=== PATIENT | male | born 1940 | race Caucasian/White ===

== ENCOUNTER → 2020-07-22 09:08 | Outpatient (BNVA) | payer MEDICARE, SELFPAY | PROVIDERS: PCP Nurse Practitioner Adult Health; Referring Provider Nurse Practitioner Adult Health; Visit Provider Urology | DX: N40.1 Benign prostatic hyperplasia with lower urinary tract symptoms (principal); R35.1 Nocturia; N13.8 Other obstructive and reflux uropathy | CPT/HCPCS: 99212 ==

== ENCOUNTER → 2022-03-30 11:11 | Outpatient (BNVA) | payer MEDICARE, SELFPAY | PROVIDERS: PCP Nurse Practitioner Adult Health; Visit Provider Urology | DX: N40.1 Benign prostatic hyperplasia with lower urinary tract symptoms (principal); N13.8 Other obstructive and reflux uropathy; R35.1 Nocturia | CPT/HCPCS: Q3014 ==

== ENCOUNTER 2023-04-24 13:40 | Outpatient (REF) | payer MEDICARE, SELFPAY ==
[2023-04-24 14:36] LABS: Hematocrit 37.1 % (42.0-52.0); Hemoglobin 12.8 g/dl (14.0-18.0); Mean Corpuscular HGB Conc 34.5 g/dl (31.0-36.0); Mean Corpuscular Hemoglobin 34.3 pg (27.0-33.0); Mean Corpuscular Volume 99.5 fL (80.0-98.0); Mean Platelet Volume 10.9 fL (9.4-12.4); Platelet Count 128 X10*3/uL (160-400); Red Blood Count 3.73 X10*6/uL (4.60-5.80); Red Cell Distribution Width 13.3 % (11.0-16.0); White Blood Count 8.1 X10*3/uL (4.8-10.8)
[2023-04-24 15:49] LABS: Iron 88 mcg/dL (45-160); Percent Iron Saturation 39 % (15-50); Total Iron Binding Capacity 223 mcg/dL (228-428); Unsaturated Iron Binding 135 ug/dL
[2023-04-24 15:54] LABS: Ferritin 531 ng/mL (20-250)
[2023-04-24 15:56] LABS: Prostate Specific Antigen 1.66 ng/mL (<0.05-4.0)
== END 2023-04-24 13:41 | disposition home or self-care (01) ==
LOC: HO.LAB 13:40
PROVIDERS: Urology; PCP Nurse Practitioner Adult Health; Visit Provider Internal Medicine
DX: Z12.5 Encounter for screening for malignant neoplasm of prostate (principal); N13.8 Other obstructive and reflux uropathy; N40.1 Benign prostatic hyperplasia with lower urinary tract symptoms; K59.00 Constipation, unspecified; K62.5 Hemorrhage of anus and rectum
CPT/HCPCS: 36415; 82728; 83540; 84153; 85027; 99202

== ENCOUNTER 2023-04-24 13:40 | Outpatient (AMB) | payer MEDICARE, SELFPAY ==
--- NOTE | 2023-04-24 13:45 | MHC.OFFVIS ---
Intake Vital Signs 04/24/23 13:46 Height 5 ft 5 in Weight 202 lb 13.204 oz BMI 33.7 BP 117/58 L Blood Pressure Location Lt brachial Position Sitting Pulse 75 Intake Visit Reasons: URGENT-change in bowel habits Intake Note: Gareth presents in the office as a new patient. CC: He was having constipation way back but since has resolved. Under Water Assistant Required: No Allergies No Known Allergies Allergy (Verified 04/24/23 13:47) HPI HPI Comments History of Present Illness Details 82 y.o M with PMH of HTN, ??COPD, sleep apnea, who is here for constipation that has now resolved. Reports having severe constipation x1 week for which he was seen by his PCP. Had hard stools that required significant straining and saw streak of blood on wiping after one of the BMs. However reports complete resolution after taking miralax one time and adding fiber and hydration to his diet. No abdominal pain, nausea, vomiting, change in appetite, unintentional weight loss. No blood in stool. No fam hx of CRC. His last colonoscopy was almost 15 years ago according to his reports. [facility] Medical History (Updated 04/26/23 @ 08:57 by Deya Mayo MD) Diverticulitis HTN (hypertension) Elevated PSA Poor urinary stream Benign prostatic hyperplasia with lower urinary tract symptoms Surgical History (Updated 04/24/23 @ 13:47 by NAIMA Jon) Hx of colonoscopy History of appendectomy Review of Systems Const All systems reviewed & are unremarkable except as noted in HPI and below Physical Exam Vital Signs: Last Vital Signs Pulse 75 04/24/23 13:46 BP 117/58 L 04/24/23 13:46 BMI result Body Mass Index 33.7 Gen appear: NAD HEENT: nonicteric, no cervical lymphadenopathy Chest: CTA CVS: Regular S1/S2 Abd: soft, nontender, nondistended, bowel sounds + Ext: no peripheral edema Neuro: A/Ox3, noted to move all extremities spontaneously Psych: interacting appropriately Assessment & Plan Assessment & Plan (1) Constipation: Code(s): K59.00 - Constipation, unspecified (2) Bright red rectal bleeding: Code(s): K62.5 - Hemorrhage of anus and rectum Plan Pt reports complete resolution of sx and is wondering if he really needs to have a colonoscopy. Reviewed with the pt that as long as the sx were self limited and he is back to baseline, there are no red flags to warrant urgent colonoscopy. However, if the sx recur/worsen would strongly advise evaluation with a colonoscopy. He is also adamant that streaks of blood were very scant and have not recured since. However I did advise pt to get blood work done and low threshold to pursue endoscopy if has anemia/low iron indices. Follow up contingent on above. Orders: Orders Ferritin 04/24/23 K62.5 - Hemorrhage of anus and rectum IRON PROFILE 04/24/23 K62.5 - Hemorrhage of anus and rectum Complete Blood Count no Diff 04/24/23 K62.5 - Hemorrhage of anus and rectum Coding Level of Care Code New Pt Level 4 (04999) Diagnoses Constipation K59.00 Bright red rectal bleeding K62.5
[2023-04-24 13:46] VITALS: BP 117/58; PULSE 75; BMI 33.7
== END 2023-04-24 14:43 | disposition home or self-care (01) ==
PROVIDERS: PCP Nurse Practitioner Adult Health; Visit Provider Internal Medicine
DX: K59.00 Constipation, unspecified (principal); K62.5 Hemorrhage of anus and rectum
CPT/HCPCS: 99204

== ENCOUNTER 2023-06-06 11:14 | Outpatient (AMB) | payer MEDICARE, SELFPAY ==
--- NOTE | 2023-06-06 11:39 | A.OFFVIS_ITS ---
Intake Intake Visit Reasons: 1Y PSA(set) Intake Note: Patient is present via phone for 1 year follow-up psa Current medication finasteride, doxasosin, tadalafil PSA RESULTS: 1.66 ng/mL 04/24/2023 Certified Wellness Program Manager Required: No Accompanied by: Self / Same As Patient Allergies No Known Allergies Allergy (Verified 06/06/23 11:40) Medication List - Last Reconciled 06/06/23 by Juan Craven MD albuterol sulfate 90 mcg/actuation 0 mcg inhalation ascorbate calcium (vitamin C) 1 g PO Q6H aspirin (Adult Aspirin Regimen) 81 mg PO DAILY atorvastatin 40 mg PO DAILY calcium carbonate (Calcium) 1,200 mg PO DAILY cholecalciferol (vitamin D3) 125 mcg PO DAILY doxazosin 8 mg PO BEDTIME 90 days finasteride 5 mg PO DAILY 90 days furosemide 20 mg PO DAILY lactobacillus combination no.9 (Adult 50 Plus Probiotic) 4,000 mmu cells PO DAILY losartan 50 mg PO DAILY magnesium 500 mg PO DAILY mecobalamin (vitamin B12) 1,000 mcg PO DAILY multivitamin 1 tab PO DAILY mupirocin 2% topical tadalafil 20 mg PO DAILY PRN 30 days HPI HPI Comments History of Present Illness Details Gareth is a pleasant male. He is a patient of . He is seen for the following urologic conditions - lower urinary tract symptoms - elevated PSA Telemedicine evaluation 15 minute consultation [employer] janette Video attempted Yearly evaluation Effective urinary control on maximum dose doxazosin Finasteride - Sunday, Sunday, Sunday PSA has continued to fall He is still very happy with current resolved Continue yearly review Lower Urinary Tract Symptoms: PSA has dropped. Current visit is for further evaluation of, lower urinary tract symptoms, predominate obstructive symptoms - happy on medications. Current treatment includes 01/04 medication, , alpha fouzia, doxazosin 8mg, 5-AR, finasteride. - Jun 2020 finasteride every other day, doxazosin 8 mg Prior treatments include medication. Prostate Symptom Score Moderate (9-19), Bother 3 01/04 , Mild (0-8), Bother 2. Symptoms include incomplete emptying, and are stable. Prior Prostate Score moderate. PSA 2011 6.5, Free PSA 26% - 01/04 3.3, 07/07 4.0, 07/08 2.3, 07/09 1.8, 02/08 2.8, 05/12 1.6 Prostate volume 30-50gm. Testing at next visit will include Prostate Symptom Score, bladder scan. Treatment plan continue with current medications [facility] Medical History Diverticulitis HTN (hypertension) Elevated PSA Poor urinary stream Benign prostatic hyperplasia with lower urinary tract symptoms Surgical History Hx of colonoscopy History of appendectomy Review of Systems Const All systems reviewed & are unremarkable except as noted in HPI and below Reports no additional complaints Resp Reports no additional complaints GI Reports no additional complaints Reports as per HPI Musc Reports no additional complaints Physical Exam Telemedicine evaluation Appropriate responses Regular breathing rate and rhythm HEENT Head: Yes normal to inspection Ears: hearing grossly normal bilaterally Eyes General: appearance normal, both eyes and all related structures Neck Neck: Yes normal visual inspection Chest Chest palpation & inspection: normal inspection of the chest Resp Effort & Inspection: normal respiratory effort and able to speak in complete sentences Assessment & Plan Assessment & Plan (1) Nocturia associated with benign prostatic hyperplasia: Code(s): N40.1 - Benign prostatic hyperplasia with lower urinary tract symptoms; R35.1 - Nocturia (2) BPH w urinary obs/LUTS: Code(s): N40.1 - Benign prostatic hyperplasia with lower urinary tract symptoms; N13.8 - Other obstructive and reflux uropathy Plan Twelve month follow-up Orders: Orders Prostate Specific Antigen 364 Days N13.8 - Other obstructive and reflux uropathy, N40.1 - Benign prostatic hyperplasia with lower urinary tract symptoms Medications: Changed From finasteride 8 mg PO DAILY To finasteride 5 mg PO DAILY 90 tabs 3RF 90 days From doxazosin 8 mg PO DAILY 90 tabs 3RF 90 days To doxazosin 8 mg PO BEDTIME 90 tabs 3RF 90 days Patient Instructions: Imaging studies, laboratory and physical exam results were discussed and reviewed in detail. No major barriers to patient understanding were identified. An opportunity to ask questions regarding the treatment plan was provided. All questions were answered. The patient expressed understanding and agreement with the above treatment plan. The patient is aware they should contact our office by phone for worsening of their current condition or the appearance of new urologic symptoms. Compliance is encouraged with any medications and followup testing that is ordered. It is a privilege to participate in the urologic care of your patient. If you have any questions or concerns regarding treatment for the above conditions, or other urologic issues, please do not hesitate to contact me. The office telephone contact is [phone]. This note is constructed using voice recognition software. While every effort has been made to ensure accuracy computer forensics technician errors may have been included. Yours sincerely, Dr Juan Craven MD, [facility] - Urology Providers of Expert, Compassionate Care for the Genitourinary System Telehealth Telehealth Location of provider rendering services: practice address Location of patient: address on file Patient Identification confirmed using: Name, : Yes Telehealth method: video Patient verbally consented to treatment: Yes Patient verbally consented to billing insurance company: Yes Patient informed of any privacy concerns related to visit: Yes Coding Level of Care Code Tele Est Pt Level 4 (30775) Diagnoses Nocturia associated with benign prostatic hyperplasia N40.1; R35.1 BPH w urinary obs/LUTS N40.1; N13.8
== END 2023-06-06 13:57 | disposition home or self-care (01) ==
LOC: HO.HUSH 11:14
PROVIDERS: PCP Nurse Practitioner Adult Health; Visit Provider Urology
DX: N40.1 Benign prostatic hyperplasia with lower urinary tract symptoms (principal); R35.1 Nocturia; N13.8 Other obstructive and reflux uropathy
CPT/HCPCS: 99214

== ENCOUNTER → 2023-06-06 11:14 | Outpatient (BNVA) | payer MEDICARE, SELFPAY | PROVIDERS: PCP Nurse Practitioner Adult Health; Visit Provider Urology ==

== ENCOUNTER 2024-04-24 09:31 | Outpatient (AMB) | payer MEDICARE, SELFPAY ==
[2024-04-24 09:39] VITALS: BP 132/77; PULSE 55; O2SAT 94; BMI 34.7
--- NOTE | 2024-04-24 09:39 | MHC.OFFVIS ---
Vital Signs 04/24/24 09:39 Height 5 ft 5 in Weight 208 lb 5.389 oz BMI 34.7 BP 132/77 Blood Pressure Location Rt brachial Position Sitting Pulse 55 Pulse Source Doppler Pulse Oximetry (%) 94 Oxygen Delivery Method Room Air Intake Visit Reasons: copd Allergies No Known Allergies Allergy (Verified 06/06/23 11:40) HPI HPI copd: Details: 83-year-old gentleman, remote former smoker, quit 1981, with underlying pulmonary emphysema without fixed obstruction on pulmonary function test in 2021, possible asthma, MESFIN on CPAP, previously seen at [facility] presents to transition his care secondary to insurance reasons. Patient states that his symptoms been well controlled on Wixela 250 and albuterol MDI. He is using his CPAP machine nightly with good control of his underlying sleep apnea. He denies dyspnea on exertion. He denies any recent exacerbation. [facility], [facility] Medical History Diverticulitis HTN (hypertension) Elevated PSA Poor urinary stream Benign prostatic hyperplasia with lower urinary tract symptoms Surgical History Hx of colonoscopy History of appendectomy Social History (Updated 04/24/24 @ 09:46 by Kathrine Irby Saadia) Patient Tobacco Use Status: Former Tobacco user Tobacco use type: Cigarette Years Smoked: started at age 18, quit at age 41, 2 PPD Review of Systems Const Denies daytime sleepiness, Denies excessive sweating, Denies fatigue, Denies fever(s), Denies lethargy, Denies malaise, Denies night sweats, Denies snoring and Denies weight loss Eyes Denies blurry vision and Denies itchy eyes ENT Denies nasal congestion, Denies post nasal drip, Denies sinus pain, Denies sinus pressure and Denies other ( Thrush) Card Denies chest pain, Denies pedal edema, Denies dyspnea, Denies orthopnea and Denies paroxysmal nocturnal dyspnea Resp Denies cough, Denies hemoptysis, Denies excessive phlegm production, Denies dyspnea, Denies snoring and Denies wheezing GI Denies abdominal pain and Denies heartburn Musc Denies myalgias, Denies arthralgias and Denies joint swelling Skin/Breast Denies rash Neuro Denies memory loss and Denies seizure-like activity Psych Denies abnormal sleep pattern, Denies anxiety and Denies memory loss Endo Denies excessive sweating, Denies fatigue and Denies heat intolerance Jerome/Lymph Denies easy bruising Aller/Immun Denies itchy eyes, Denies seasonal rhinorrhea and Denies wheezing Physical Exam Vital Signs: Last Vital Signs Pulse 55 04/24/24 09:39 BP 132/77 04/24/24 09:39 Pulse Ox 94 04/24/24 09:39 Oxygen Delivery Method Room Air 04/24/24 09:39 BMI result Body Mass Index 34.7 Const General: no acute distress and alert Nutritional Appearance: obese Orientation/consciousness: Other orientation findings ( oriented) HEENT Head: Yes atraumatic Eyes General: appearance normal, both eyes and all related structures Sclerae: sclerae normal EOM: EOMs intact bilaterally Neck Neck: Yes supple Lymphatic: no lymphadenopathy noted Resp Effort & Inspection: normal respiratory effort and no use of accessory muscles Auscultation: clear to auscultation bilaterally Cardio Rate: regular rate Rhythm: regular rhythm Heart sounds: no gallops, no murmurs and no rubs Skin General skin exam: other ( warm) Extrem General: No clubbing, No cyanosis and No edema Assessment & Plan Assessment & Plan (1) Pulmonary emphysema: Code(s): J43.9 - Emphysema, unspecified Category: Medical Plan: No fixed obstruction on PFT, possible underlying asthma. Symptomatic clear well controlled on current regimen of Advair 250 and albuterol MDI. Continue current regimen. (2) MESFIN on CPAP: Code(s): G47.33 - Obstructive sleep apnea (adult) (pediatric) Category: Medical Plan: Therapy report reviewed, patient benefits and is compliant with underlying CPAP therapy. Continue current CPAP therapy. Coding Level of Care Code New Pt Level 4 (31974) Diagnoses Pulmonary emphysema J43.9 MESFIN on CPAP G47.33
== END 2024-04-24 09:57 | disposition home or self-care (01) ==
PROVIDERS: PCP Nurse Practitioner Adult Health; Visit Provider Internal Medicine Pulmonary Disease
DX: J43.9 Emphysema, unspecified (principal); G47.33 Obstructive sleep apnea (adult) (pediatric)
CPT/HCPCS: 99204

== ENCOUNTER → 2024-04-24 09:31 | Outpatient (BNVA) | payer MEDICARE, SELFPAY | PROVIDERS: PCP Nurse Practitioner Adult Health; Visit Provider Internal Medicine Pulmonary Disease | DX: J43.9 Emphysema, unspecified (principal); G47.33 Obstructive sleep apnea (adult) (pediatric); Z99.89 Dependence on other enabling machines and devices | CPT/HCPCS: 99202 ==

== ENCOUNTER → 2024-07-03 09:42 | Outpatient (BNVA) | payer MEDICARE, SELFPAY | PROVIDERS: PCP Nurse Practitioner Adult Health; Visit Provider Urology ==

== ENCOUNTER 2024-07-04 11:16 | Outpatient (AMB) | payer MEDICARE, SELFPAY ==
--- NOTE | 2024-07-04 11:16 | MHC.OFFVIS ---
Intake Visit Reasons: 3M PSA/Testo(Labs?)Confirmed Intake Note: Patient is present for PSA Follow up Urology Med: Finasteride, Doxazosin, Tadalafil Antibiotic Allergy: None Blood Thinner: Aspirin PSA: 06/26/24 1.37 Websphere Commerce Architect Required: No Allergies No Known Allergies Allergy (Verified 07/04/24 11:17) HPI Comments Details: Gareth is a pleasant male. He is a patient of . He is seen for the following urologic conditions - lower urinary tract symptoms - elevated PSA Telemedicine evaluation 15 minute consultation [place] janette Video attempted Yearly evaluation Effective urinary control on maximum dose doxazosin and finasteride Finasteride - daily Plan yearly review Lower Urinary Tract Symptoms: PSA has dropped. Current visit is for further evaluation of, lower urinary tract symptoms, predominate obstructive symptoms - happy on medications. Current treatment includes 01/04 medication, , alpha fouzia, doxazosin 8mg, 5-AR, finasteride. - Jun 2020 finasteride every other day, doxazosin 8 mg Prior treatments include medication. Prostate Symptom Score Moderate (9-19), Bother 3 01/04 , Mild (0-8), Bother 2. Symptoms include incomplete emptying, and are stable. Prior Prostate Score moderate. PSA 2011 6.5, Free PSA 26% - 01/04 3.3, 07/07 4.0, 07/08 2.3, 07/09 1.8, 02/08 2.8, 05/12 1.6, 06/12 1.3 Prostate volume 30-50gm. Testing at next visit will include Prostate Symptom Score, bladder scan. Treatment plan continue with current medications [facility] Medical History Diverticulitis HTN (hypertension) Elevated PSA Poor urinary stream Benign prostatic hyperplasia with lower urinary tract symptoms Surgical History Hx of colonoscopy History of appendectomy Social History Patient Tobacco Use Status: Former Tobacco user Tobacco use type: Cigarette Years Smoked: started at age 18, quit at age 41, 2 PPD Review of Systems Const All systems reviewed & are unremarkable except as noted in HPI and below Reports no additional complaints Resp Reports no additional complaints GI Reports no additional complaints Reports as per HPI Musc Reports no additional complaints Physical Exam Telemedicine evaluation Appropriate responses Regular breathing rate and rhythm HEENT Head: Yes normal to inspection Ears: hearing grossly normal bilaterally Eyes General: appearance normal, both eyes and all related structures Neck Neck: Yes normal visual inspection Chest Chest palpation & inspection: normal inspection of the chest Resp Effort & Inspection: normal respiratory effort and able to speak in complete sentences Telehealth Telehealth Telehealth Platform: [employer] Location of provider rendering services: practice address Location of patient: address on file Patient Identification confirmed using: Name, : Yes Telehealth method: video Patient verbally consented to treatment: Yes Patient verbally consented to billing insurance company: Yes Patient informed of any privacy concerns related to visit: Yes Minutes spent on Phone/Video with Pt.: 15 Assessment & Plan Assessment & Plan (1) BPH w urinary obs/LUTS: Code(s): N40.1 - Benign prostatic hyperplasia with lower urinary tract symptoms; N13.8 - Other obstructive and reflux uropathy Category: Medical (2) Nocturia associated with benign prostatic hyperplasia: Code(s): N40.1 - Benign prostatic hyperplasia with lower urinary tract symptoms; R35.1 - Nocturia Category: Medical Plan Refills for 1 year provided Twelve month follow-up Medications: Refilled doxazosin 8 mg PO BEDTIME 90 days 90 tabs 3RF finasteride 5 mg PO DAILY 90 days 90 tabs 3RF Discontinued tadalafil administer approximately 30min before sexual activity; do not use more than 1 dose per 24hrs Discontinued Reason: Patient Completed Course 20 mg PO DAILY 30 days PRN 6 tabs 2RF sexual activity Patient Instructions: Imaging studies, laboratory and physical exam results were discussed and reviewed in detail. No major barriers to patient understanding were identified. An opportunity to ask questions regarding the treatment plan was provided. All questions were answered. The patient expressed understanding and agreement with the above treatment plan. The patient is aware they should contact our office by phone for worsening of their current condition or the appearance of new urologic symptoms. Compliance is encouraged with any medications and followup testing that is ordered. It is a privilege to participate in the urologic care of your patient. If you have any questions or concerns regarding treatment for the above conditions, or other urologic issues, please do not hesitate to contact me. The office telephone contact is [phone]. This note is constructed using voice recognition software. While every effort has been made to ensure accuracy stamping mill tender errors may have been included. Yours sincerely, Dr Juan Craven MD, [facility] - Urology Providers of Expert, Compassionate Care for the Genitourinary System Coding Level of Care Code Tele Est Pt Level 4 (47041) Diagnoses BPH w urinary obs/LUTS N40.1; N13.8 Nocturia associated with benign prostatic hyperplasia N40.1; R35.1
== END 2024-07-04 11:54 | disposition home or self-care (01) ==
LOC: HO.HUSH 11:16
PROVIDERS: PCP Nurse Practitioner Adult Health; Visit Provider Urology
DX: N40.1 Benign prostatic hyperplasia with lower urinary tract symptoms (principal); N13.8 Other obstructive and reflux uropathy; R35.1 Nocturia
CPT/HCPCS: 99214

== ENCOUNTER 2024-10-24 09:03 | Outpatient (AMB) | payer MEDICARE, SELFPAY ==
--- NOTE | 2024-10-24 09:06 | MHC.OFFVIS ---
Vital Signs 10/24/24 09:21 Height 5 ft 5 in Weight 210 lb 8.663 oz BMI 35.0 BP 120/64 Blood Pressure Location Lt brachial Position Sitting Pulse 50 Pulse Source Pulse Oximeter Pulse Oximetry (%) 98 Oxygen Delivery Method Room Air Intake Visit Reasons: COPD Woodyard Operator Required: No Allergies No Known Allergies Allergy (Verified 10/24/24 09:23) HPI HPI COPD: Details: 84-year-old gentleman, remote former smoker, quit 1981, with underlying pulmonary emphysema without fixed obstruction now followed for asthma and MESFIN on CPAP. Patient's symptoms continue to be well controlled on current regimen of Advair and albuterol MDI. His sleep apnea symptoms are controlled on his current CPAP therapy. He denies recent exacerbations. [facility] Medical History Diverticulitis HTN (hypertension) Elevated PSA Poor urinary stream Benign prostatic hyperplasia with lower urinary tract symptoms Surgical History Hx of colonoscopy History of appendectomy Social History Patient Tobacco Use Status: Former Tobacco user Tobacco use type: Cigarette Years Smoked: started at age 18, quit at age 41, 2 PPD Review of Systems Const Denies daytime sleepiness, Denies excessive sweating, Denies fatigue, Denies fever(s), Denies lethargy, Denies malaise, Denies night sweats, Denies snoring and Denies weight loss Eyes Denies blurry vision and Denies itchy eyes ENT Denies nasal congestion, Denies post nasal drip, Denies sinus pain, Denies sinus pressure and Denies other ( Thrush) Card Denies chest pain, Denies pedal edema, Denies dyspnea, Denies orthopnea and Denies paroxysmal nocturnal dyspnea Resp Denies cough, Denies hemoptysis, Denies excessive phlegm production, Denies dyspnea, Denies snoring and Denies wheezing GI Denies abdominal pain and Denies heartburn Musc Denies myalgias, Denies arthralgias and Denies joint swelling Skin/Breast Denies rash Neuro Denies memory loss and Denies seizure-like activity Psych Denies abnormal sleep pattern, Denies anxiety and Denies memory loss Endo Denies excessive sweating, Denies fatigue and Denies heat intolerance Jerome/Lymph Denies easy bruising Aller/Immun Denies itchy eyes, Denies seasonal rhinorrhea and Denies wheezing Physical Exam Vital Signs: Last Vital Signs Pulse 50 10/24/24 09:21 BP 120/64 10/24/24 09:21 Pulse Ox 98 10/24/24 09:21 Oxygen Delivery Method Room Air 10/24/24 09:21 BMI result Body Mass Index 35.0 Const General: no acute distress and alert Nutritional Appearance: not obese Orientation/consciousness: Other orientation findings ( oriented) HEENT Head: Yes atraumatic Eyes General: appearance normal, both eyes and all related structures Sclerae: sclerae normal EOM: EOMs intact bilaterally Neck Neck: Yes supple Lymphatic: no lymphadenopathy noted Resp Effort & Inspection: normal respiratory effort and no use of accessory muscles Auscultation: clear to auscultation bilaterally Cardio Rate: regular rate Rhythm: regular rhythm Heart sounds: no gallops, no murmurs and no rubs Skin General skin exam: other ( warm) Extrem General: No clubbing, No cyanosis and No edema Assessment & Plan Assessment & Plan (1) Pulmonary emphysema: Code(s): J43.9 - Emphysema, unspecified Category: Medical Plan: Well controlled on current regimen of Advair and albuterol MDI. Continue current regimen. (2) MESFIN on CPAP: Code(s): G47.33 - Obstructive sleep apnea (adult) (pediatric) Category: Medical Plan: Well controlled on current CPAP therapy. Continue CPAP therapy. Therapy and compliance report reviewed - patient is benefitting from and is compliant with noninvasive positive pressure ventilation treatment, using it greater than 70% of the time, more than 4 hours per night. Medications: Changed From albuterol sulfate 90 mcg/actuation inhalation To albuterol sulfate 90 mcg/actuation 2 puffs inhalation Q4-6H PRN 1 ea 6RF shortness of breath or wheezing Coding Level of Care Code Est Pt Level 4 (38326) Diagnoses Pulmonary emphysema J43.9 MESFIN on CPAP G47.33
[2024-10-24 09:21] VITALS: BP 120/64; PULSE 50; O2SAT 98; BMI 35.0
== END 2024-10-24 11:10 | disposition home or self-care (01) ==
PROVIDERS: PCP Nurse Practitioner Adult Health; Visit Provider Internal Medicine Pulmonary Disease
DX: J43.9 Emphysema, unspecified (principal); G47.33 Obstructive sleep apnea (adult) (pediatric)
CPT/HCPCS: 99214

== ENCOUNTER → 2024-10-24 09:03 | Outpatient (BNVA) | payer MEDICARE, SELFPAY | PROVIDERS: PCP Nurse Practitioner Adult Health; Visit Provider Internal Medicine Pulmonary Disease | DX: J43.9 Emphysema, unspecified (principal); G47.33 Obstructive sleep apnea (adult) (pediatric); Z99.89 Dependence on other enabling machines and devices | CPT/HCPCS: 99212 ==

== ENCOUNTER 2025-07-03 08:49 | Outpatient (AMB) | payer MEDICARE, SELFPAY ==
--- OUTSIDE RECORDS SUMMARY | 2025-07-02 10:25 | XMS_ITS | Encounter Summary ---
Author Organization [facility] Address [address] [place] [address] Care Team Providers Care Rn Travel Name Role Phone Quang Morris DO Primary Care Provider [phone] Encounter Details Date Type Department Care Team (Late Contact Info) Description 07/02/2025 10:25 AM EST Lab Draw Station - [address] [phone] Essential (primary) hypertension Social History Tobacco Use Types Packs/Day Years Used Date Smoking Tobacco: Former Cigarettes 2.5 23 0 08/20/1957 - 08/20/1980 Smokeless Tobacco: Never Alcohol Use Standard Drinks/Week Comments Never 0 (1 standard drink = 0.6 oz pur e alcohol) Sex and Gender Information Value Date Recorded Sex Assigned at Not on file Legal Sex Male 6:09 AM EST Gender Identity Not on file Sexual Orientation Not on file documented as of this encounter Plan of Treatment Upcoming Encounters Date Type Department Care Team (Late Contact Info) Description 07/28/2025 3:35 PM EST Office Visit Pulmonology - [place] [address] [place] [phone] Janet Gee NP [address] [place] [phone] documented as of this encounter Procedures Procedure Name Priority Date/Time Associated Diagnosis Comments LIPID PANEL WITH REFLEX TO DIRECT LDL Routine 07/02/2025 10:25 AM EST Essential (primary) hypertension BASIC METABOLIC PANEL Routine 07/02/2025 10:25 AM EST Essential (primary) hypertension documented in this encounter Results * Lipid panel with reflex to direct LDL (07/02/2025 10:25 AM EST) Cholesterol 133 0 - 200 mg/dL LAB CHEMISTRY METHOD 07/02/2025 12:07 PM [facility] Triglycerides 89 0 - 150 mg/dL LAB CHEMISTRY METHOD 07/02/2025 12:07 PM [facility] HDL 68 >=40 mg/dL LAB CHEMISTRY METHOD 07/02/2025 12:07 PM [facility] LDL Calculated 47 0 - 100 mg/dL LAB CHEMISTRY METHOD 07/02/2025 12:07 PM [facility] Comment:Estimated LDL Calcul ated using equation: Total cholesterol - HDL cholesterol - (Triglycerides/5) VLDL Cholesterol Emmanuel 17.8 mg/dL LAB CHEMISTRY METHOD 07/02/2025 12:07 PM [facility] Non HDL Chol. (LDL+VLDL) 65 <145 mg/dL LAB CHEMISTRY METHOD 07/02/2025 12:07 PM [facility] Chol/HDL Ratio 2.0 0.0 - 4.4 LAB CHEMISTRY METHOD 07/02/2025 12:07 PM [facility] Blood Venipuncture / Unknown 07/02/2025 10:25 AM EST 07/02/2025 10:[address] [facility] LAB BLOOD ORDERABLES Final Resul t [facility] [address] [place] [address], * (ABNORMAL) Basic metabolic panel (07/02/2025 10:25 AM EST) Pathologist [facility] Sodium 137 133 - 145 mmol/L LAB CHEMISTRY METHOD 07/02/2025 12:07 PM [facility] Potassium 4.2 3.5 - 5.5 mmol/L LAB CHEMISTRY METHOD 07/02/2025 12:07 PM [facility] Chloride 103 96 - 110 mmol/L LAB CHEMISTRY METHOD 07/02/2025 12:07 PM [facility] CO2 31 21 - 32 mmol/L LAB CHEMISTRY METHOD 07/02/2025 12:07 PM [facility] Anion Gap 3 3 - 11 LAB CHEMISTRY METHOD 07/02/2025 12:07 PM [facility] Glucose 124(H) 70 - 100 mg/dL LAB CHEMISTRY METHOD 07/02/2025 12:07 PM [facility] BUN 28(H) 5 - 25 mg/dL LAB CHEMISTRY METHOD 07/02/2025 12:07 PM [facility] Creatinine 1.52(H) 0.70 - 1.30 mg/dL LAB CHEMISTRY METHOD 07/02/2025 12:07 PM [facility] eGFR 44(L) >=60 mL/min/1. 73m2 LAB CHEMISTRY METHOD 07/02/2025 12:07 PM [facility] Comment:Calculation based on the Chronic Kidney Disease Epidemiology Collaboration (CKD-EPI) equation refit without adjustment for race. BUN/Creatinine Ratio 18.4 LAB CHEMISTRY METHOD 07/02/2025 12:07 PM [facility] Calcium 9.4 8.5 - 10.5 mg/dL LAB CHEMISTRY METHOD 07/02/2025 12:07 PM [facility] Blood Venipuncture / Unknown 07/02/2025 10:25 AM EST 07/02/2025 10:[address] [facility] LAB BLOOD ORDERABLES Final Resul t [facility] [address] [place] [address], documented in this encounter Visit Diagnoses Diagnosis Essential (primary) hypertension Unspecified essential hypertension documented in this encounter Care Teams Rn Travel Relationship Specialty Start Date End Date Quang Morris DO [address] [place] [phone] PCP - General 11/29/23 documented as of this encounter
--- OUTSIDE RECORDS SUMMARY | 2025-07-03 09:09 | XMS_ITS | Clinical Summary ---
Author Organization [facility] Address [address] [place] [phone] Phone Care Team Providers Care Court Reporter Name Role Phone Anita Angelo DOUBLER OPERATOR Primary Care Provi ana lilia Unavailable Social History Tobacco Use Types Packs/Day Years Used Date Smoking Tobacco: Never Assessed Education Answer Date Recorded Are you interested in more education? Not on katie e 12/15/2022 Are you concerned about learning? Not on file 12/15/2022 No 12/15/2022 No 12/15/2022 Digital Access Answer Date Recorded No 01/16/2023 No 01/16/2023 No 01/16/2023 Reliable internet access at home? Not on file 01/16/2023 Device with a working camera? Not on file Sex and Gender Information Value Date Recorded Sex Assigned at Not on file Legal Sex Male 9:25 AM EDT Gender Identity Not on file Sexual Orientation Not on file Last Filed Vital Signs Vital Sign Reading Time Taken Comments Blood Pressure 132/60 05/23/2018 10:08 AM EDT Pulse - - Temperature - - Respiratory Rate - - Oxygen Saturation - - Inhaled Oxygen Concentration - - Weight - - Height - - Body Mass Index - - Plan of Treatment Not on file Medical Devices Not on file Insurance [address] [address] MEDICARE PART A & B [employer] MEDEX SUPPLEMENT MEDICARE PART A & B [employer] SUPPLEMENT MEDICARE PART A & B [employer] MED[employer] SUPPLEMENT MEDICARE PART A & B [employer] MEDEX SUPPLEMENT [id number] [place] [address] MEDICARE PART A & B [employer] [place]PP[place] [id number] [place] [address] MEDICARE PART A & B [employer] MED[employer] SUPPLEMENT [address] [place] [address] MEDICARE PART A & B [employer] MED[employer] SUPPLEMENT MEDICARE PART A [place] [id number] MEDICARE PART A & B [employer] MEDEX SUPPLEMENT Care Teams Court Reporter Relationship Specialty Start Date End Date Anita Angelo NP PCP - General Family Medicine 05/08/18 Additional Source Comments The information contained in this document represents components of the legal health record. It is not the complete legal health record.[facility]
--- OUTSIDE RECORDS SUMMARY | 2025-07-03 09:09 | XMS_ITS | Encounter Summary ---
Author Organization [facility] Address [address] [facility] [address] [place], [place] [id number] Phone Care Team Providers Care Inspector Name Role Phone Anita Angelo NP Primary Care Provi ana lilia Unavailable Reason for Referral * MRI/CAT Scan - Closed Specialty Diagnoses / Procedures Referred By Dimitris t Referred To Contact Radiology Diagnoses Chest discomfort Procedures NC Myocardial Perfusion Exercise Multiple Candis Martins MD Phone: tel: fax: [email or web address] Referral ID Status Reason Start Date Expiration Date Visits Re quested Visits Authorized [id number] Closed 05/08/2018 05/08/2019 1 1 Encounter Details Date Type Department Care Team (Latest Contact Info) Description 05/08/2018 Transcribe [facility] [address] [place] [address] 3rd Floor, [address] [place] [address] Candis Martins MD [address] [place] [phone] [email or web address] Chest discomfort (Primary Dx) Social History Tobacco Use Types Packs/Day Years Used Date Smoking Tobacco: Never Assessed Sex and Gender Information Value Date Recorded Sex Assigned at Not on file Legal Sex Male 9:25 AM EDT Gender Identity Not on file Sexual Orientation Not on file documented as of this encounter Plan of Treatment Not on file documented as of this encounter Results * NC Myocardial Perfusion Exercise Multiple (07/09/2018 10:47 AM EST) Nuc Stress EF 63 % LV Systolic Volume 35 mL LV Diastolic Volume 86 mL EF 59 % LV Systolic Volume Index 26 mL/m2 LV Diastolic Volume Index 71 mL/m2 Anatomical Region Laterality Modality Heart, Vascular Ultrasound Narrative 07/10/2018 11:02 AM EST Probably normal study There is a mild small inferior defect which I suspect is due to diaphragmatic attenuation. The patient could not prone. No clear evidence of myocardial infarction or myocardial ischemia. Normal LV size and function. Nuclear Study Quality Overall image quality is good. The test performed was a Two-Day Julio Protocol exercise stress test. Tc99m Sestamibi injected intravenously at peak stress followed by one minute of exercise. The stress images were obtained 20 minutes following the radiopharmaceutical injection and the resting images were obtained approximately 45 minutes following the radiopharmaceutical injection.. There are no artifacts present. Study was successfully gated.. Response to Stress BMI: 33.44 Patient exercised for 7:21 minutes on a standard Julio protocol achieving 10.1 METs and 100% MPHR (141 BPM). The test was terminated due to fatigue. SUMMARY: 1. RESTING ECG: Normal sinus rhythm with incomplete left bundle branch block. 2. EXERCISE ECG: No ECG changes that meet criteria for ischemia. 3. SYMPTOMS: Patient reported mild throat tightness causing some mild shortness of breath in early recovery that resolved spontaneously. 4. PHYSIOLOGY: Appropriate exercise physiology. Resting heart rate of 65 bpm franco to a max heart rate of 141 bpm, this represents 100% MPHR. Resting BP of 120/62 franco to a max BP of 156/92. Vital signs stable and returned to baseline prior to discharge from the lab. Achieved 10.1 METs consistent with good functional capacity for age. 5. ARRHYTHMIA: Infrequent isolated PVCs. CONCLUSION: Normal ECG portion of exercise stress test without ECG changes that meet criteria for ischemia and without symptoms concerning for angina. Appropriate exercise physiology. Good functional capacity. Sandhu treadmill score of +7.5 consistent with mild risk. Report reviewed with Dr. Soto. Nuclear images and report to follow. Erika Cerda PA-C. Perfusion Comments The TID ratio was 0.8. Stress Function Comments Post-stress ejection fraction was 63%. Stress end diastolic index: 71 mL/m2. Stress end systolic index: 26 mL/m2. Nuclear Prior Study There is no prior study available for comparison. Rest Function Comments Resting ejection fraction was 59%. Rest end diastolic index: 86 mL. Rest end systolic index: 35 mL. Perfusion Scoring Stress Summed Score: 2 Percent Normal: 2.94% Mild count reduction in the following segments: basal inferior and mid inferior. All other segments are normal. Perfusion Scoring Resting Summed Score: 2 Percent Normal: 2.94% Mild count reduction in the following segments: basal inferior and mid inferior. All other segments are normal. Procedure Note Ben Soto MD / Asaf Moody MD - 07/10/2018 Probably normal study There is a mild small inferior defect which I suspect is due todiaphragmatic attenuation. The patient could not prone. No clear evidence of myocardial infarction or myocardial ischemia. Normal LV size and function. Candis Martins MD CV NM CARDIAC Final Result documented in this encounter Visit Diagnoses Diagnosis Chest discomfort- Primary Other chest pain Chest discomfort Other chest pain Chest discomfort- Primary Other chest pain documented in this encounter Care Teams Inspector Relationship Specialty Start Date End Date Anita Angelo NP PCP - General Family Medicine 05/08/18 documented as of this encounter Additional Source Comments The information contained in this document represents components of the legal health record. It is not the complete legal health record.[facility]
--- OUTSIDE RECORDS SUMMARY | 2025-07-03 09:09 | XMS_ITS | Clinical Summary ---
Author Organization [facility] [address] [place] [address] [place] [phone] Phone Care Team Providers Care Anatomy Professor Name Role Phone AlexandraQuang Primary Care Provider [phone] Medications fluticasone-salm eterol (ADVAIR DISKUS) 250-50 mcg/dose diskus inhalerIndicatio ns:Mixed simple and mucopurulent chronic bronchitis (CMS/HCC V24, CMS/HCC V28) Inhale 1 puff by mouth 2 (two) times a day. Rinse mouth with water after use to reduce aftertaste and incidence of candidiasis. Do not swallow. 1 each 01/31/20 026 Active aspirin 81 mg EC tablet Take 1 tablet (81 mg total) by mouth 1 (one) time each day. Active cholecalciferol (Vitamin D3) 25 mcg (1,000 unit) tablet Take 1 tablet (1,000 Units total) by mouth 1 (one) time each day. Active ascorbic acid (Vitamin C) 1,000 mg tablet Take 1 tablet (1,000 mg total) by mouth 1 (one) time each day. Active losartan (COZAAR) 25 mg tablet Take 1 tablet (25 mg total) by mouth 1 (one) time each day. Active finasteride (PROSCAR) 5 mg tablet Take 8 mg by mouth 1 (one) time each day. Active triamcinolone (KENALOG) 0.1 % cream Apply topically. Act bree nitroglycerin (NITROSTAT) 0.[address] 1 mg under the tongue 1 (one) time each day at the same time. Active metoprolol succinate (TOPROL-XL) 25 mg 24 hr tablet 11/27/19 25 Active magnesium oxide 500 mg capsule Take by mouth. Active ketoconazole (NIZORAL) 2 % cream Apply 2 % topically 1 (one) time each day at the same time. 05/07/20 15 Active furosemide (LASIX) 20 mg tablet Take 1 tablet (20 mg total) by mouth 1 (one) time each day. Active doxazosin (CARDURA) 8 mg tablet Take 1 tablet (8 mg total) by mouth 1 (one) time each day. Active polycarbophil (FIBERCON) 625 mg tablet 05/06/20 14 Active multivitamin with iron 1 tablet Active Lactobacillus acidophilus capsule See administration instructions. Active cyanocobalamin (VITAMIN B-12) 1,000 mcg tablet Take 1 tablet (1,000 mcg total) by mouth 1 (one) time each day. Active albuterol HFA (PROAIR HFA ; PROVENTIL HFA ; VENTOLIN HFA) 90 mcg/actuation inhaler INHALE ( 2 PUFFS ) BY MOUTH INTO THE LUNGS EVERY 6 HOURS NEEDED FOR COUGH, WHEEZING, OR FOR SHORTNESS OF BREATH. 8.5 g 1 03/02/20 25 Active atorvastatin (LIPITOR) 40 mg tablet 03/27/20 25 Active Encounters Date Type Department Care Team Description 07/02/2025 10:25 AM EST Lab Draw Station - [address] [phone] Essential (primary) hypertension 05/22/2025 Telephone Pulmonology - [address] [phone] Gabriella Bear [place] 05/18/2025 10:35 AM EDT Office Visit Pulmonology - [address] [phone] Janet Gee NP Obstructive sleep apnea (Primary Dx); Mixed simple and mucopurulent chronic bronchitis (CMS/HCC V24, CMS/HCC V28); Obesity (BMI 30-39.9) from Last 3 Months Surgical History Surgery Date Site/Laterality Comments APPENDECTOMY 1993 N/A PROCEDURE: HISTORICAL APPENDECTOMY Medical History Medical History Date Comments HTN (hypertension) DX:HTN (hyper tension) Glaucoma 2020 DX:Glaucoma; COM MENT: states eye doctor this told him very small Cataract DX:Cataract Back pain DX:Back pain COPD (chronic obstructive pu lmonary disease) ([facility]/HCC V24, CMS/HCC V28) DX:COPD (chronic o bstructive pulmonary disease) ([facility]) Family History Medical History Relation Name Comments Coronary artery disease Brother Lung cancer Father smoker No Known Problems Mother 89 old age Lung cancer Uncle 1 Lung cancer Uncle 2 Lung cancer Uncle 3 Lung cancer Uncle 4 Relation Name Status Comments Brother Alive Father Maternal Grandfather Maternal Grandmother Mother Paternal Grandfather Paternal Grandmother Uncle 1 Uncle 2 Uncle 3 Uncle 4 Social History Tobacco Use Types Packs/Day Years [...] on file Sexual Orientation Not on file Obstetrics History Last Filed Vital Signs Vital Sign Reading Time Taken Comments Blood Pressure 126/74 05/18/2025 10:12 AM EDT Pulse 60 05/18/2025 10:12 AM EDT Temperature 35.7 C (96.3 F) 05/18/2025 10:12 AM EDT Respiratory Rate 16 05/18/2025 10:12 AM EDT Oxygen Saturation 94% 05/18/2025 10:12 AM EDT Inhaled Oxygen Concentration - - Weight 95.8 kg (211 lb 3.2 oz) 05/18/2025 10:12 AM EDT Height 167.6 cm (5' 6 ) 05/18/2025 10:12 AM EDT Body Mass Index 34.09 05/18/2025 10:12 AM EDT Plan of Treatment Upcoming Encounters Date Type Department Care Team (Late st Contact Info) Description 07/28/2025 3:35 PM EST Office Visit Pulmonology - [address] [place] [phone] Janet Gee, MARJ [address] [place] [address] Health Maintenance Due Date Last Done Comments Falls Risk Assessment 07/30/2022 Medicare Annual Wellness Visit 07/30/2022 Social Influencers of Health Screening 07/30/2022 Depression Screening 08/20/2024 COVID-19 Vaccine ( season) 2025 05/06/2025, 04/23/2024, 05/21/2023, Additional history exists Hypertension/CHF/CAD Annual BMP Blood Test 07/02/2026 07/02/2025, 12/19/2024 DTaP,Tdap,and Td Vaccines (2 - Td or Tdap) 06/21/2027 06/21/2017 Cholesterol Screening (Lipid Panel) 07/02/2030 07/02/2025, 12/19/2024 Zoster Vaccines Completed 06/06/2018, 02/18, 12/31/2017, Additional history exists Pneumococcal Vaccine: 50+ Years Completed 09/25/2022, 04/26/2017, 04/12/2015, Additional history exists RSV Immunization Adult Patients Completed 06/06/2023 Influenza Vaccine Completed 05/06/2025, , 05/03/2023, Additional history exists HIB Vaccines Aged Out No longer eligi ble based on patient's age to complete this topic HPV Vaccines Aged Out No longer eligi ble based on patient's age to complete this topic Hepatitis A Vaccines Aged Out No long er eligible based on patient's age to complete this topic Hepatitis B Vaccines Aged Out No long er eligible based on patient's age to complete this topic IPV Vaccines Aged Out No longer eligi ble based on patient's age to complete this topic MMR Vaccines Aged Out No longer eligi ble based on patient's age to complete this topic Meningococcal ACWY Vaccine Aged Out N o longer eligible based on patient's age to complete this topic Meningococcal B Vaccine Aged Out No l onger eligible based on patient's age to complete this topic RSV Immunization Patients Under 20 months Aged Out No longer eligible based on patient's age to complete this topic Varicella Vaccines Aged Out No longer eligible based on patient's age to complete this topic Procedures Procedure Name Priority Date/Time Associated Diagnosis Comments LIPID PANEL WITH REFLEX TO DIRECT LDL Routine 07/02/2025 10:25 AM EST Essential (primary) hypertension BASIC METABOLIC PANEL Routine 07/02/2025 10:25 AM EST Essential (primary) hypertension from Last 3 Months Results * Lipid panel with reflex to direct LDL (07/02/2025 10:25 AM EST) Cholesterol 133 0 - 200 mg/dL LAB CHEMISTRY METHOD 07/02/2025 12:07 PM EST [facility] Triglycerides 89 0 - 150 mg/dL LAB CHEMISTRY METHOD 07/02/2025 12:07 PM EST [facility] HDL 68 >=40 mg/dL LAB CHEMISTRY METHOD 07/02/2025 12:07 PM [facility] LDL Calculated 47 0 - 100 mg/dL LAB CHEMISTRY METHOD 07/02/2025 12:07 PM [facility] Comment:Estimated LDL Calcul ated using equation: Total cholesterol - HDL cholesterol - (Triglycerides/5) VLDL Cholesterol Emmanuel 17.8 mg/dL LAB CHEMISTRY METHOD 07/02/2025 12:07 PM EST [facility] Non HDL Chol. (LDL+VLDL) 65 <145 mg/dL LAB CHEMISTRY METHOD 07/02/2025 12:07 PM [facility] Chol/HDL Ratio 2.0 0.0 - 4.4 LAB CHEMISTRY METHOD 07/02/2025 12:07 PM [facility] Blood Venipuncture / Unknown 07/02/2025 10:25 AM EST 07/02/2025 10:25 AM EST [facility] LAB BLOOD ORDERABLES Final Resul t [facility] [address] [place] [address], * (ABNORMAL) Basic metabolic panel (07/02/2025 10:25 AM EST) Sodium 137 133 - 145 mmol/L LAB CHEMISTRY METHOD 07/02/2025 12:07 PM [facility] Potassium 4.2 3.5 - 5.5 mmol/L LAB CHEMISTRY METHOD 07/02/2025 12:07 PM [facility] Chloride 103 96 - 110 mmol/L LAB CHEMISTRY METHOD 07/02/2025 12:07 PM [facility] CO2 31 21 - 32 mmol/L LAB CHEMISTRY METHOD 07/02/2025 12:07 PM [facility] Anion Gap 3 3 - 11 LAB CHEMISTRY METHOD 07/02/2025 12:07 PM [facility] Glucose 124(H) 70 - 100 mg/dL LAB CHEMISTRY METHOD 07/02/2025 12:07 PM [facility] BUN 28(H) 5 - 25 mg/dL LAB CHEMISTRY METHOD 07/02/2025 12:07 PM [facility] Creatinine 1.52(H) 0.70 - 1.30 mg/dL LAB CHEMISTRY METHOD 07/02/2025 12:07 PM [facility] eGFR 44(L) >=60 mL/min/1. 73m2 LAB CHEMISTRY METHOD 07/02/2025 12:07 PM [facility] Comment:Calculation based on the Chronic Kidney Disease Epidemiology Collaboration (CKD-EPI) equation refit without adjustment for race. BUN/Creatinine Ratio 18.4 LAB CHEMISTRY METHOD 07/02/2025 12:07 PM [facility] Calcium 9.4 8.5 - 10.5 mg/dL LAB CHEMISTRY METHOD 07/02/2025 12:07 PM [facility] Blood Venipuncture / Unknown 07/02/2025 10:25 AM EST 07/02/2025 10:25 AM EST [facility] LAB BLOOD ORDERABLES Final Resul t [facility] [address] [place] [address], [place] [phone] from Last 3 Months Insurance [employer] MEDICARE Care Teams Anatomy Professor Relationship Specialty Start Date End Date Quang Morris DO [address] [place] [phone] PCP - General 11/29/23
--- NOTE | 2025-07-03 09:19 | MHC.OFFVIS ---
Intake Visit Reasons: 1y/PVR Intake Note: Patient is present for Yearly PVR Urology Med: Doxazosin, Finasteride Antibiotic Allergy: None Blood Thinner: Aspirin PVR: 72ml Last PSA 1.66 04/24/2023 Cnc Service Technician Required: No Accompanied by: Self / Same As Patient Allergies No Known Allergies Allergy (Verified 07/03/25 09:19) HPI Comments Details: Gareth is a pleasant male. He is a patient of . He is seen for the following urologic conditions - lower urinary tract symptoms - elevated PSA Yearly evaluation PVR 72 Effective urinary control on maximum dose doxazosin and finasteride Finasteride - daily with doxazosin Continue to follow yearly Lower Urinary Tract Symptoms: PSA has dropped. Current visit is for further evaluation of, lower urinary tract symptoms, predominate obstructive symptoms - happy on medications. Current treatment includes 01/04 medication, , alpha fouzia, doxazosin 8mg, 5-AR, finasteride. - Jun 2020 finasteride every other day, doxazosin 8 mg Prior treatments include medication. Prostate Symptom Score Moderate (9-19), Bother 3 01/04 , Mild (0-8), Bother 2. Symptoms include incomplete emptying, and are stable. Prior Prostate Score moderate. PSA 2011 6.5, Free PSA 26% - 01/04 3.3, 07/07 4.0, 07/08 2.3, 07/09 1.8, 02/08 2.8, 05/12 1.6, 06/12 1.3 Prostate volume 30-50gm. Testing at next visit will include Prostate Symptom Score, bladder scan. Treatment plan continue with current medications [facility] Medical History Diverticulitis HTN (hypertension) Elevated PSA Poor urinary stream Benign prostatic hyperplasia with lower urinary tract symptoms Surgical History Hx of colonoscopy History of appendectomy Social History Patient Tobacco Use Status: Former Tobacco user Tobacco use type: Cigarette Years Smoked: started at age 18, quit at age 41, 2 PPD Review of Systems Const Denies chills and Denies fever(s) Card Reports no additional complaints and Denies syncope Resp Denies cough GI Denies abdominal pain and Denies heartburn Reports as per HPI and Denies change in libido Neuro Denies syncope Psych Denies change in libido Endo Denies change in libido Physical Exam Const General: cooperative, healthy appearing, comfortable and no acute distress Orientation/consciousness: patient oriented x3 HEENT Face and sinus: Yes normal facial exam Mouth: moist mucous membranes Neck Neck: Yes normal visual inspection, Yes full ROM and Yes trachea midline Chest Chest palpation & inspection: normal inspection of the chest Resp Effort & Inspection: normal respiratory effort, able to speak in complete sentences and no respiratory distress GI Inspection: Yes normal to inspection Back/Spine/Pelvis Cervical Spine: normal cervical lordosis Thoracic/Lumbar Spine: thoracic and lumbar spine normal to inspection Skin General skin exam: no rashes or lesions noted Neuro General: patient oriented x3, gait normal, tone normal and moves all extremities Extrem General: Yes normal to inspection and Yes capillary refill normal Office Procedures Post Void Residual Post Residual Void Post Void Residual (PVR): 72 [id number] Void Residual by ultrasound Results AMB Urinalysis, Automated UA Leukoctes 0 Rdau/uL Last Edit by Kathrine Carney [facility] on 07/03/25 09:27 UA Nitrite Negative Last Edit by Kathrine Carney [facility] on 07/03/25 09:27 UA Urobilinogen 0.2 mg/dL Last Edit by Kathrine Carney [facility] on 07/03/25 09:27 UA Protein 0 mg/dL Last Edit by Kathrine Carney [facility] on 07/03/25 09:27 UA pH 6.0 Last Edit by Kathrine Carney [facility] on 07/03/25 09:27 UA Blood 0 Fabian/uL Last Edit by Kathrine Carney [facility] on 07/03/25 09:27 UA Specific [place] 1.010 Last Edit by Kathrine Carney [facility] on 07/03/25 09:27 UA Ketone Negative Last Edit by Kathrine Carney [facility] on 07/03/25 09:27 UA Bilirubin 0 mg/dL Last Edit by Kathrine Carney [facility] on 07/03/25 09:27 UA Glucose 0 mg/dL Last Edit by Kathrine Carnye [facility] on 07/03/25 09:27 Results Reviewed Results Reviewed: Laboratory Last Values Urine pH (Auto) 6.0 07/03/25 09:19 Specific [place] (Auto) 1.010 07/03/25 09:19 Urine Protein (Auto) 0 mg/dL 07/03/25 09:19 Glucose (UA)(Auto) 0 mg/dL 07/03/25 09:19 Urine Ketones (Auto) Negative 07/03/25 09:19 Urine Blood (Auto) 0 Fabian/uL 07/03/25 09:19 Urine Nitrite (Auto) Negative 07/03/25 09:19 Urine Bilirubin (Auto) 0 mg/dL 07/03/25 09:19 Urine Urobilinogen (Auto) 0.2 mg/dL 07/03/25 09:19 Leukocyte Esterase (Auto) 0 Radu/uL 07/03/25 09:19 Assessment & Plan Assessment & Plan (1) BPH w urinary obs/LUTS: Code(s): N40.1 - Benign prostatic hyperplasia with lower urinary tract symptoms; N13.8 - Other obstructive and reflux uropathy Category: Medical (2) Nocturia associated with benign prostatic hyperplasia: Code(s): N40.1 - Benign prostatic hyperplasia with lower urinary tract symptoms; R35.1 - Nocturia Category: Medical Plan Twelve month follow-up PVR Orders: Orders AMB Post Void Residual by ultrasound Today N40.1 - Benign prostatic hyperplasia with lower urinary tract symptoms, R35.1 - Nocturia AMB Urinalysis Automated Today Z13.9 - Encounter for screening, unspecified Patient Instructions: This note is constructed using voice recognition software. While every effort has been made to ensure accuracy adolescent coordinator errors may have been included. Imaging studies, laboratory and physical exam results were discussed and reviewed in detail. No major barriers to patient understanding were identified. An opportunity to ask questions regarding the treatment plan was provided. All questions were answered. The patient expressed understanding and agreement with the above treatment plan. The patient is aware they should contact our office by phone for worsening of their current condition or the appearance of new urologic symptoms. Compliance is encouraged with any medications and followup testing that is ordered. It is a privilege to participate in the urologic care of your patient. If you have any questions or concerns regarding treatment for the above conditions, or other urologic issues, please do not hesitate to contact me. The office telephone contact is [phone]. Sincerely, Dr Juan Craven MD, [facility] - Urology Compassionate Specialist Care for the Genitourinary System Coding Level of Care Code Est Pt Level 4 (56971) Diagnoses BPH w urinary obs/LUTS N40.1; N13.8 Nocturia associated with benign prostatic hyperplasia N40.1; R35.1 CPT Codes Post Residual Void - PVR CPT Code: 04044-[id number] Void Residual by ultrasound ([id number])
== END 2025-07-03 10:15 | disposition home or self-care (01) ==
LOC: HO.HUSH 08:49
PROVIDERS: PCP Nurse Practitioner Adult Health; Visit Provider Urology
DX: N40.1 Benign prostatic hyperplasia with lower urinary tract symptoms (principal); N13.8 Other obstructive and reflux uropathy; R35.1 Nocturia; Z13.9 Encounter for screening, unspecified
CPT/HCPCS: 99214

== ENCOUNTER → 2025-07-03 08:49 | Outpatient (BNVA) | payer MEDICARE, SELFPAY | PROVIDERS: PCP Nurse Practitioner Adult Health; Visit Provider Urology | DX: N40.1 Benign prostatic hyperplasia with lower urinary tract symptoms (principal); N13.8 Other obstructive and reflux uropathy; R35.1 Nocturia; Z13.9 Encounter for screening, unspecified | CPT/HCPCS: 51798; 81003; 99212 ==